=== PATIENT | male | born 1955 | race Caucasian/White ===

== ENCOUNTER 2017-02-06 16:37 | Emergency (ER) | payer SELFPAY ==
[~2017-02-06] VITALS: Ht 175.3 cm; Wt 86.0 kg
[2017-02-06 16:40] VITALS: BP 147/83; PULSE 82; RESP 14; TEMP 98.7; O2SAT 94
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
[2017-02-06] MEDS ORDERED: SODIUM CHLORIDE 0.9% FLUSH 10 ML FLUSH IVF PRN (17:00)
[2017-02-06 17:18] LABS: AUTOMATED NEUTROPHIL # 5.4 TH/MM3 (1.8-7.7); BASOPHIL % 0.3 % (0.0-2.0); EOSINOPHIL # 0.1 TH/MM3 (0-0.4); EOSINOPHIL % 0.9 % (0.0-4.0); HEMATOCRIT 34.3 % (39.0-51.0); HEMO FLAGS DIFF FINAL; LYMPH % 34.4 % (9.0-44.0); LYMPHOCYTE # 3.1 TH/MM3 (1.0-4.8); MEAN CELL VOLUME 86.7 FL (80.0-100.0); MEAN CORPUSCULAR HEMOGLOBIN 30.8 PG (27.0-34.0); MEAN CORPUSCULAR HGB CONC 35.5 % (32.0-36.0); MONO % 5.5 % (0.0-8.0); NEUT % 58.9 % (16.0-70.0); PLATELET COUNT 262 TH/MM3 (150-450); RED BLOOD COUNT 3.96 MIL/MM3 (4.50-5.90); WHITE BLOOD COUNT 9.2 TH/MM3 (4.0-11.0)
[2017-02-06 17:30] LABS: APTT (PATIENT) 26.6 SEC (24.3-30.1); PROTHROMBIN TIME - PATIENT 11.3 SEC (9.8-11.6)
[2017-02-06 17:36] LABS: BICARBONATE 21.4 MEQ/L (21.0-32.0); POTASSIUM 3.7 MEQ/L (3.5-5.1)
--- NOTE | 2017-02-06 17:37 | RADRPT ---
EXAM DATE/TIME: 02/06/2017 17:02 [facility] COMPARISON: No previous studies available for comparison. INDICATIONS : Fall trauma. MEDICAL HISTORY : None. SURGICAL HISTORY : None. ENCOUNTER: Initial ACUITY: 1 day PAIN SCORE: 06/01 LOCATION: Bilateral chest FINDINGS: A single view of the chest demonstrates the lungs to be symmetrically aerated without evidence of mas s, infiltrate or effusion. The cardiomediastinal contours are unremarkable. Osseous structures are grossly acutely intact. CONCLUSION: No evidence of acute cardiopulmonary disease. Zac Ramos MD on February 06, 2017 at 17:35 Board Certified Radiologist. This report was verified electronically.
--- NOTE | 2017-02-06 17:40 | RADRPT ---
EXAM DATE/TIME: 02/06/2017 17:14 [facility] COMPARISON: No previous studies available for comparison. INDICATIONS : Trauma; fall RADIATION DOSE: 69.15 CTDIvol (mGy) MEDICAL HISTORY : None SURGICAL HISTORY : None. ENCOUNTER: Initial ACUITY: 1 day PAIN SCALE: 5/10 LOCATION: Bilateral cranial TECHNIQUE: Multiple contiguous axial images were obtained of the head. Using automated exposure control and adj ustment of the mA and/or kV according to patient size, radiation dose was kept as low as reasonably a chievable to obtain optimal diagnostic quality images. DICOM format image data is available electro nically for review and comparison. FINDINGS: CEREBRUM: The ventricles are normal for age. No evidence of midline shift, mass lesion, hemorrhage or acute in farction. No extra-axial fluid collections are seen. POSTERIOR FOSSA: The cerebellum and brainstem are intact. The 4th ventricle is midline. The cerebellopontine angle i s unremarkable. EXTRACRANIAL: Mucoperiosteal thickening and a fluid level seen in the visualized left maxillary air cell. The visua lized facial bones appear grossly intact. SKULL: The calvaria is intact. No evidence of skull fracture. CONCLUSION: No bleed or other acute intracranial abnormality. Left maxillary sinus disease. Zac Ramos MD on February 06, 2017 at 17:38 Board Certified Radiologist. This report was verified electronically.
--- NOTE | 2017-02-06 17:43 | RADRPT ---
EXAM DATE/TIME: 02/06/2017 17:14 [facility] COMPARISON: No previous studies available for comparison. INDICATIONS : Trauma; fall. RADIATION DOSE: 41.47 CTDIvol (mGy) MEDICAL HISTORY : None SURGICAL HISTORY : None. ENCOUNTER: Initial ACUITY: 1 day PAIN SCALE: 4/10 LOCATION: Bilateral neck TECHNIQUE: Volumetric scanning of the cervical spine was performed. Multiplanar reconstructions in the sagittal, coronal and oblique axial planes were performed. Using automated exposure control and adjustment o f the mA and/or kV according to patient size, radiation dose was kept as low as reasonably achievable to obtain optimal diagnostic quality images. DICOM format image data is available electronically f or review and comparison. FINDINGS: Cervical spine alignment is normal. Vertebral bodies have normal height. No cortical break or trabecu lar disruption. Chronic hypertrophic bone seen of the posterior spinous process of C7, potentially developmental or r elated to old trauma. Mild disc space narrowing with mild uncovertebral and facet osteoarthritis seen at C5/C6. Perivertebral soft tissues are within normal limits. CONCLUSION: No acute fracture or subluxation of the cervical spine. Chronic changes as above. Zac Ramos MD on February 06, 2017 at 17:39 Board Certified Radiologist. This report was verified electronically.
[2017-02-06] MEDS ORDERED: SODIUM CHLOR 0.9% 1000 ML INJ 1,000 ML IV ONE (18:00)
[2017-02-06] MEDS ORDERED: TETANUS/DIPHTHERIA TOXOID ADULT 0.5 ML VIAL IM ONE (19:00)
[2017-02-06 20:59] VITALS: BP 150/80
== END 2017-02-06 21:20 | disposition home or self-care (01) ==
LOC: NEPD 16:37
DX: S01.01XA Laceration without foreign body of scalp, initial encounter (principal); S09.90XA Unspecified injury of head, initial encounter; E87.1 Hypo-osmolality and hyponatremia; F10.10 Alcohol abuse, uncomplicated; Z72.0 Tobacco use; Z23 Encounter for immunization; W18.39XA Other fall on same level, initial encounter
CPT/HCPCS: 12001; 70450; 71010; 72125; 80048; 80307; 85025; 85610; 85730; 90471; 90714; 96360; 96361; 99285; J7030; L0150

== ENCOUNTER 2017-03-27 20:37 | Emergency (ER) | payer SELFPAY ==
[2017-03-27 20:50] VITALS: BP 143/84; PULSE 85; RESP 17; TEMP 99.3; O2SAT 97
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
[2017-03-28 04:59] VITALS: BP 177/77; PULSE 55; RESP 18; O2SAT 98
[2017-03-28 10:38] VITALS: BP 126/83; PULSE 85; RESP 18; TEMP 98.5; O2SAT 99
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
--- NOTE | 2017-03-28 11:53 | PD ---
Physical Exam Date Seen by Provider: Mar 28, 2017 Narrative 62-year-old male presented to emergency department intoxicated and depressed mood. Later while he was drinking he stated he wanted to kill himself. He states that he was sober for approximately 6 years and drank last night. He currently lives in a sober home. Patient was medically cleared to see Dr. Huang. Once patient was sober he admitted to not having any homicidal or suicidal ideations and would like to go back to his sober life. He adamantly wants to stay sober and live his life to the fullest. He appreciates the help that [facility] given him. Data Data Last Documented VS Vital Signs Date Time Temp Pulse Resp B/P (MAP) Pulse Ox O2 Delivery O2 Flow Rate FiO2 03/28/17 10:38 98.5 85 18 126/83 (97) 99 Room Air Orders Orders Psych Screen (03/27/17 21:08) Diet Regular Basic (03/28/17 Breakfast) Diet Regular Basic (03/28/17 Lunch) Ed Discharge Order (03/28/17 12:03) MDM Supervised Visit with LEO: Yes Diagnosis Primary Impression: Alcohol abuse Scripts No Active Prescriptions or Reported Meds Condition: Stable Wendy Hawk Mar 28, 2017 11:53
== END 2017-03-28 12:43 | disposition home or self-care (01) ==
LOC: NEPJ 20:37
DX: F10.10 Alcohol abuse, uncomplicated (principal); R07.9 Chest pain, unspecified; F41.9 Anxiety disorder, unspecified; F39 Unspecified mood [affective] disorder; Z72.0 Tobacco use
CPT/HCPCS: 99284

== ENCOUNTER 2017-11-11 09:42 | Inpatient (IN) | payer SELFPAY ==
[2017-11-11] VITALS (15 sets, daily range): BP systolic 128–175; BP diastolic 70–103; PULSE 53–71; RESP 16–20; TEMP 96.7–98.5; O2SAT 95–100
[~2017-11-11] VITALS: Ht 175.3 cm; Wt 50.0 kg
[2017-11-11] MEDS ORDERED: ONDANSETRON ODT 4 MG TAB PO ONE (10:15)
[2017-11-11] MEDS ORDERED: SODIUM CHLORIDE 0.9% FLUSH 10 ML FLUSH IVF PRN (10:15)
[2017-11-11] MEDS ORDERED: ASPIRIN 81 MG CHEW TAB PO ONE (10:15)
[2017-11-11 10:19] LABS: AUTOMATED NEUTROPHIL # 3.3 TH/MM3 (1.8-7.7); BASOPHIL # 0.1 TH/MM3 (0-0.2); BASOPHIL % 0.8 % (0.0-2.0); EOSINOPHIL # 0.1 TH/MM3 (0-0.4); HEMATOCRIT 35.1 % (39.0-51.0); HEMOGLOBIN 11.5 GM/DL (13.0-17.0); LYMPH % 29.7 % (9.0-44.0); MEAN CORPUSCULAR HEMOGLOBIN 33.6 PG (27.0-34.0); MEAN CORPUSCULAR HGB CONC 32.9 % (32.0-36.0); MEAN PLATELET VOLUME 7.4 FL (7.0-11.0); MONO % 18.9 % (0.0-8.0); MONOCYTE # 1.3 TH/MM3 (0-0.9); NEUT % 48.6 % (16.0-70.0); PLATELET COUNT 469 TH/MM3 (150-450); RED BLOOD COUNT 3.44 MIL/MM3 (4.50-5.90); RED CELL DISTRIBUTION WIDTH 15.1 % (11.6-17.2); WHITE BLOOD COUNT 6.8 TH/MM3 (4.0-11.0)
[2017-11-11 10:23] LABS: CHLORIDE 103 MEQ/L (98-107); SODIUM (NA) 135 MEQ/L (136-145)
[2017-11-11 10:26] LABS: ALBUMIN 3.5 GM/DL (3.4-5.0); BICARBONATE 21.6 MEQ/L (21.0-32.0); CALCIUM 8.3 MG/DL (8.5-10.1)
[2017-11-11 10:27] LABS: BLOOD UREA NITROGEN 4 MG/DL (7-18); GLUCOSE,RANDOM 97 MG/DL (74-106); INTERNATIONAL NORMALIZED RATIO 1.1 RATIO
[2017-11-11 10:30] LABS: ALT (GPT) 60 U/L (12-78); AST (GOT) 42 U/L (15-37); CREATININE 0.79 MG/DL (0.60-1.30); GLOMERULAR FILTRATION RATE 100 ML/MIN (>89)
[2017-11-11 10:31] LABS: TOTAL BILIRUBIN ADULT 0.6 MG/DL (0.2-1.0)
[2017-11-11 10:33] LABS: TOTAL PROTEIN 7.2 GM/DL (6.4-8.2)
[2017-11-11 10:34] LABS: ALKALINE PHOSPHATASE 39 U/L (45-117); TROPONIN I LESS THAN 0.02 NG/ML (0.02-0.05)
--- NOTE | 2017-11-11 10:37 | RADRPT ---
EXAM DATE: 11/11/2017 10:25 AM EDT AGE/SEX: 62 years / Male INDICATIONS: Chest pain. CLINICAL DATA: This is the patient's initial encounter. Patient reports that signs and symptoms have been present for 1 day and indicates a pain score of 6/10. MEDICAL/SURGICAL HISTORY: Cardiovascular disease. None. COMPARISON: [facility] [place], CHEST SINGLE AP, 02/06/2017. . FINDINGS: A single AP view of the chest demonstrates the lungs to be symmetrically aerated without evidence of mass, infiltrate or effusion. Mild left ventricular hypertrophy. Osseous structures are intact. CONCLUSION: Negative for an acute process Mild left ventricular hypertrophy Electronically signed by: Geronimo Stone MD 11/11/2017 10:36 AM EDT
[2017-11-11] MEDS ORDERED: POTASSIUM CHLORIDE 10 MEQ CONTROLLED RELEASE TAB PO ONE (11:00)
--- NOTE | 2017-11-11 11:10 | PD ---
HPI Chief Complaint: Chest Pain Time Seen by Provider: 09:47 Travel History International Travel<30 days: No Contact w/Intl Traveler<30days: No Traveled to known affect area: No History of Present Illness HPI Patient is a 62-year-old male who comes in complaining of chest pain. He says the pain started about 2 hours ago and is in the left side of his chest. He says pain radiates to his left arm. He says that he had similar pain 5 years ago when he had a "minor heart attack." He says the pain started while he was sweeping the floor today. He has some associated shortness of breath and nausea with this. He denies cough or cold symptoms. He has not taken anything for his pain. Nothing seems to improve or worsen his symptoms at this time. Severity is mild to moderate. PFSH Past Medical History Myocardial Infarction: Yes Past Surgical History Abdominal Surgery: Yes (hernia) Social History Alcohol Use: Yes Tobacco Use: No Substance Use: No Allergies-Medications (Allergen,Severity, Reaction): Coded Allergies: No Known Allergies (Unverified Adverse Reaction, Unknown, 11/11/17) Reported Meds & Prescriptions Reported Meds & Active Scripts Active No Active Prescriptions or Reported Medications Review of Systems Except as stated in HPI: all other systems reviewed are Neg General / Constitutional: No: Fever, Chills HENT: No: Headaches, Lightheadedness Cardiovascular: Positive: Chest Pain or Discomfort Respiratory: Positive: Shortness of Breath Gastrointestinal: Positive: Nausea, No: Vomiting, Abdominal Pain Musculoskeletal: No: Myalgias, Edema Skin: No Rash, No Change in Pigmentation Neurologic: No: Weakness, Syncope Physical Exam Narrative GENERAL: Awake and alert, in no acute distress. SKIN: Focused skin assessment warm/dry. HEAD: Atraumatic. Normocephalic. EYES: Pupils equal and round. No scleral icterus. ENT: Mucous membranes pink and moist. NECK: Trachea midline. No JVD. CARDIOVASCULAR: Regular rate and rhythm. No murmur appreciated. RESPIRATORY: No accessory muscle use. Clear to auscultation. Breath sounds equal bilaterally. GASTROINTESTINAL: Abdomen soft, non-tender, nondistended. MUSCULOSKELETAL: No obvious deformities. No clubbing. No cyanosis. No edema. NEUROLOGICAL: Awake and alert. No obvious cranial nerve deficits. Motor grossly within normal limits. Normal speech. PSYCHIATRIC: Appropriate mood and affect; insight and judgment normal. Data Data Last Documented VS Vital Signs Date Time Temp Pulse Resp B/P (MAP) Pulse Ox O2 Delivery O2 Flow Rate FiO2 11/11/17 10:26 71 20 136/84 (101) 97 133/84 (100) 11/11/17 09:50 98.5 Orders Orders Ckmb (Isoenzyme) Profile (11/11/17 10:07) Complete Blood Count With Diff (11/11/17 10:07) Comprehensive Metabolic Panel (11/11/17 10:07) Prothrombin Time / Inr (Pt) (11/11/17 10:07) Act Partial Throm Time (Ptt) (11/11/17 10:07) Troponin I (11/11/17 10:07) Chest, Single Ap (11/11/17 10:07) Ecg Monitoring (11/11/17 10:07) Bilateral Bp Monitoring (11/11/17 10:07) Iv Access Insert/Monitor (11/11/17 10:07) Oximetry (11/11/17 10:07) Oxygen Administration (11/11/17 10:07) Aspirin Chew (Aspirin Chew) (11/11/17 10:15) Sodium Chloride 0.9% Flush (Ns Flush) (11/11/17 10:15) Ondansetron Odt (Zofran Odt) (11/11/17 10:15) CKMB (11/11/17 10:10) CKMB% (11/11/17 10:10) Potassium Chloride (Kcl) (11/11/17 11:00) Morphine Inj (Morphine Inj) (11/11/17 11:15) Admit Order (Ed Use Only) (11/11/17 ) Labs Laboratory Tests Test 11/11/17 10:10 White Blood Count 6.8 TH/MM3 Red Blood Count 3.44 MIL/MM3 Hemoglobin 11.5 GM/DL Hematocrit 35.1 % Mean Corpuscular Volume 102.0 FL Mean Corpuscular Hemoglobin 33.6 PG Mean Corpuscular Hemoglobin Concent 32.9 % Red Cell Distribution Width 15.1 % Platelet Count 469 TH/MM3 Mean Platelet Volume 7.4 FL Neutrophils (%) (Auto) 48.6 % Lymphocytes (%) (Auto) 29.7 % Monocytes (%) (Auto) 18.9 % Eosinophils (%) (Auto) 2.0 % Basophils (%) (Auto) 0.8 % Neutrophils # (Auto) 3.3 TH/MM3 Lymphocytes # (Auto) 2.0 TH/MM3 Monocytes # (Auto) 1.3 TH/MM3 Eosinophils # (Auto) 0.1 TH/MM3 Basophils # (Auto) 0.1 TH/MM3 CBC Comment DIFF FINAL Differential Comment Prothrombin Time 11.0 SEC Prothromb Time International Ratio 1.1 RATIO Activated Partial Thromboplast Time 26.1 SEC Blood Urea Nitrogen 4 MG/DL Creatinine 0.79 MG/DL Random Glucose 97 MG/DL Total Protein 7.2 GM/DL Albumin 3.5 GM/DL Calcium Level 8.3 MG/DL Alkaline Phosphatase 39 U/L Aspartate Amino Transf (AST/SGOT) 42 U/L Alanine Aminotransferase (ALT/SGPT) 60 U/L Total Bilirubin 0.6 MG/DL Sodium Level 135 MEQ/L Potassium Level 3.1 MEQ/L Chloride Level 103 MEQ/L Carbon Dioxide Level 21.6 MEQ/L Anion Gap 10 MEQ/L Estimat Glomerular Filtration Rate 100 ML/MIN Total Creatine Kinase 170 U/L Creatine Kinase MB 4.3 NG/ML Troponin I LESS THAN 0.02 NG/ML MDM Medical Decision Making Medical Screen Exam Complete: Yes Emergency Medical Condition: Yes Medical Record Reviewed: Yes Interpretation(s) ECG shows normal sinus rhythm at a rate of 74, no ST elevation or depression, normal intervals Differential Diagnosis ACS versus NSTEMI versus STEMI Narrative Course Patient is a 62-year-old male who comes in complaining of chest pain. Exam shows no acute abnormalities. I establish, labs sent. Patient connected to the clinical research monitor. Given an aspirin. First troponin is negative. CK-MB is mildly elevated to 4.3. Potassium found to be 3.1, this was replaced. Chest x-ray shows no acute abnormalities. Last 24 hours Impressions Chest X-Ray 11/11/17 1007 Signed Impressions: CONCLUSION: Negative for an acute process Mild left ventricular hypertrophy Patient placed in observation for further management. Diagnosis Primary Impression: Chest pain Qualified Codes: R07.9 - Chest pain, unspecified Admitting Information Admitting Physician Requests: Observation Scripts No Active Prescriptions or Reported Meds Carolina Mariano MD Nov 11, 2017 11:10
[2017-11-11] MEDS ORDERED: SODIUM CHLORIDE 0.9% FLUSH 10 ML FLUSH IV FLUSH PRN (11:15)
[2017-11-11] MEDS ORDERED: MORPHINE SULFATE 4 MG/ML INJ IV PUSH ONE (11:15)
[2017-11-11] MEDS ORDERED: ACETAMINOPHEN 500 MG CPLT PO PRN (11:15)
[2017-11-11] MEDS ORDERED: ONDANSETRON HCL 4 MG/2 ML VIAL IV PUSH PRN (11:15)
[2017-11-11] MEDS: NITROGLYCERIN 0.4 MG SL 25 TABS/BTL SL PRN ×3 (12:51→13:12)
[2017-11-11 14:08] LABS: TROPONIN I LESS THAN 0.02 NG/ML (0.02-0.05)
--- NOTE | 2017-11-11 14:10 | HHI.HP ---
[facility] Service [facility] Primary Care Physician No Primary Care Physician Admission Diagnosis Chest Pain Diagnoses: (1) Chest pain Diagnosis: Principal Chief Complaint: Chest pain Travel History International Travel<30 Days: No Contact w/Intl Traveler <30 Da: No Traveled to Known Affected Are: No History of Present Illness 62-year-old male with known history of previous myocardial infarction who presented to the emergency department for evaluation of chest pain. Patient states that he was in normal state of health until this morning when he woke up in approximately 6:30 AM he developed chest pain located on the left side of his chest with radiation into his left arm and numbness into his left arm. States that he had shortness of breath, lightheadedness, dizziness associated with the discomfort. He describes discomfort as an 8 out of 10 on a pain scale which was persistent. Patient states that as a same type of pain he felt when he had previous heart attack. Patient states that he had previous heart attack 6 years ago, indicated he had a cardiac catheterization that did not require any intervention. He states that he was put on medications for short-term basis and indicated that he was cleared to not take medications anymore. Patient has not had any follow-up or workup since then. Patient indicates that the pain is located of left-sided chest and it does hurt when he pushes on it. He was given morphine in the emergency department with minimal relief, he was just given nitroglycerin with almost complete resolution of the discomfort. Is recommended by ER physician the patient be observed in the chest pain center for further evaluation and management. Review of Systems Constitutional: COMPLAINS OF: Dizziness Cardiovascular: COMPLAINS OF: Chest pain Neurologic: COMPLAINS OF: Paresthesias Except as stated in HPI: all other systems reviewed are Neg Past Family Social History Past Medical History History of myocardial infarction Past Surgical History Cardiac catheterization Reported Medications Reported Meds & Active Scripts Active No Active Prescriptions or Reported Medications Allergies: Coded Allergies: No Known Allergies (Unverified Adverse Reaction, Unknown, 11/11/17) Family History Family history reviewed and significant for father with heart disease. Social History Patient denies any tobacco, alcohol or illicit drug Physical Exam Vital Signs Vital Signs Date Time Temp Pulse Resp B/P (MAP) Pulse Ox O2 Delivery O2 Flow Rate FiO2 11/11/17 13:18 63 16 145/102 (116) 99 11/11/17 13:15 98 21 11/11/17 13:10 61 16 134/88 (103) 96 11/11/17 13:01 62 149/102 (118) 98 11/11/17 12:47 96.8 56 16 148/103 (118) 100 11/11/17 12:21 11/11/17 11:49 61 20 131/87 (102) 98 11/11/17 10:26 71 20 136/84 (101) 97 133/84 (100) 11/11/17 10:09 95 11/11/17 09:50 98.5 65 20 175/89 (117) 99 Physical Exam GENERAL: Well-developed, well-nourished, in no acute distress. alert and orientated HEENT: Head is normocephalic without any lesions or masses noted. Facial features are symmetric. Eyes: Pupils equal round reactive to light. Extraocular muscles are intact. Conjunctivae were clear. Oropharyngeal: Pharynx without any erythema edema. Tongue is midline without deviation. Buccal mucosa is moist without any masses or lesions NECK: Supple without any masses. Trachea midline no deviation. No JVD, no bruits are appreciated CARDIAC: Regular rhythm, regular rate. S1/S2 are heard. No murmurs gallops or rubs. Patient has reproducible chest pain on palpation over the area in which he indicates was his chest discomfort LUNGS: Clear to auscultation bilaterally. No wheeze, rhonchi or rales. No use of accessory muscles on inspiration or expiration. ABDOMEN: Soft, nontender. Nondistended. Bowel sounds heard in all 4 quadrants. No organomegaly or masses. Negative rebound, negative guarding EXTREMITIES: No edema, pulses are equal bilaterally. No cyanosis or clubbing NEUROLOGY: Mood and affect appear appropriate. Cranial nerves II through XII grossly intact. Muscle strength 5/5 in upper and lower extremities bilaterally. Deep tendon reflexes are 2+ in upper and lower extremities bilaterally. Laboratory Laboratory Tests Test 11/11/17 10:10 11/11/17 13:25 White Blood Count 6.8 Red Blood Count 3.44 Hemoglobin 11.5 Hematocrit 35.1 Mean Corpuscular Volume 102.0 Mean Corpuscular Hemoglobin 33.6 Mean Corpuscular Hemoglobin Concent 32.9 Red Cell Distribution Width 15.1 Platelet Count 469 Mean Platelet Volume 7.4 Neutrophils (%) (Auto) 48.6 Lymphocytes (%) (Auto) 29.7 Monocytes (%) (Auto) 18.9 Eosinophils (%) (Auto) 2.0 Basophils (%) (Auto) 0.8 Neutrophils # (Auto) 3.3 Lymphocytes # (Auto) 2.0 Monocytes # (Auto) 1.3 Eosinophils # (Auto) 0.1 Basophils # (Auto) 0.1 CBC Comment DIFF FINAL Differential Comment Prothrombin Time 11.0 Prothromb Time International Ratio 1.1 Activated Partial Thromboplast Time 26.1 Blood Urea Nitrogen 4 Creatinine 0.79 Random Glucose 97 Total Protein 7.2 Albumin 3.5 Calcium Level 8.3 Alkaline Phosphatase 39 Aspartate Amino Transf (AST/SGOT) 42 Alanine Aminotransferase (ALT/SGPT) 60 Total Bilirubin 0.6 Sodium Level 135 Potassium Level 3.1 Chloride Level 103 Carbon Dioxide Level 21.6 Anion Gap 10 Estimat Glomerular Filtration Rate 100 Total Creatine Kinase 170 Creatine Kinase MB 4.3 Troponin I LESS THAN 0.02 Result Diagram: 11/11/17 1010 11/11/17 1010 Imaging Last Impressions Chest X-Ray 11/11/17 1007 Signed Impressions: CONCLUSION: Negative for an acute process Mild left ventricular hypertrophy Caprini VTE Risk Assessment Caprini VTE Risk Assessment: No/Low Risk (score <= 1) Caprini Risk Assessment Model Point Value = 1 Point Value = 2 Point Value = 3 Point Value = 5 Age 41-60 Minor surgery BMI > 25 kg/m2 Swollen legs Varicose veins or History of unexplained or recurrent spontaneous Oral contraceptives or hormone replacement Sepsis (< 1 month) Serious lung disease, including pneumonia (< 1 month) Abnormal pulmonary function Acute myocardial infarction Congestive heart failure (< 1 month) History of inflammatory bowel disease Medical patient at bed rest Age 61-74 Arthroscopic surgery Major open surgery (> 45 min) Laparoscopic surgery (> 45 min) Malignancy Confined to bed (> 72 hours) Immobilizing plaster cast Central venous access Age >= 75 History of VTE Family history of VTE Factor V Leiden Prothrombin [id number] Lupus anticoagulant Anticardiolipin antibodies Elevated serum homocysteine Heparin-induced thrombocytopenia Other congenital or acquired thrombophilia Stroke (< 1 month) Elective arthroplasty Hip, pelvis, or leg fracture Acute spinal cord injury (< 1 month) Prophylaxis Regimen Total Risk Factor Score Risk Level Prophylaxis Regimen 0-1 Low Early ambulation 2 Moderate Order ONE of the following: *Sequential Compression Device (SCD) *Heparin 5000 units SQ BID 3-4 Higher Order ONE of the following medications: *Heparin 5000 units SQ TID *Enoxaparin/Lovenox 40 mg SQ daily (WT < 150 kg, CrCl > 30 mL/min) *Enoxaparin/Lovenox 30 mg SQ daily (WT < 150 kg, CrCl > 10-29 mL/min) *Enoxaparin/Lovenox 30 mg SQ BID (WT < 150 kg, CrCl > 30 mL/min) AND/OR *Sequential Compression Device (SCD) 5 or more Highest Order ONE of the following medications: *Heparin 5000 units SQ TID (Preferred with Epidurals) *Enoxaparin/Lovenox 40 mg SQ daily (WT < 150 kg, CrCl > 30 mL/min) *Enoxaparin/Lovenox 30 mg SQ daily (WT < 150 kg, CrCl > 10-29 mL/min) *Enoxaparin/Lovenox 30 mg SQ BID (WT < 150 kg, CrCl > 30 mL/min) AND *Sequential Compression Device (SCD) Assessment and Plan Assessment and Plan Chest pain, atypical -Patient with risk factors include age, male, history of myocardial infarction, family history of heart disease -Patient has been ruled out for acute coronary event with serial cardiac enzymes that have remained negative -EKG was reviewed by myself and shows sinus bradycardia arrhythmia. Patient does have inverted T waves in the inferior leads this could represent old infarct. -Once patient ruled out for acute coronary event, will anticipate performing myocardial perfusion study to rule out any underlying ischemia -Continue aspirin, nitroglycerin as needed, morphine for pain control -O2 supplementation -Monitor telemetry -Patient discomfort is reproducible and could represent musculoskeletal component, costochondritis. Recommend anti-inflammatory, ice DVT prevention -Sequential compression devices Code Status Full code Problem Qualifiers (1) Chest pain: Qualified Codes: R07.9 - Chest pain, unspecified Felipe Carney Nov 11, 2017 14:10
[2017-11-11] MEDS: MORPHINE SULFATE 2 MG/ML SYRINGE IV PUSH PRN ×2 (18:10→22:39)
[2017-11-11 18:21] LABS: TROPONIN I LESS THAN 0.02 NG/ML (0.02-0.05)
[2017-11-11] MEDS: SODIUM CHLORIDE 0.9% FLUSH 10 ML FLUSH IV FLUSH SCH (20:12)
[2017-11-11] MEDS: ACETAMINOPHEN/HYDROcodone 325 MG/7.5 MG TAB PO PRN (20:13)
[2017-11-12] VITALS (16 sets, daily range): BP systolic 117–151; BP diastolic 66–83; PULSE 49–78; RESP 16–20; TEMP 96.2–98.3; O2SAT 97–100
[2017-11-12] MEDS: MORPHINE SULFATE 2 MG/ML SYRINGE IV PUSH PRN ×3 (03:12→15:34)
[2017-11-12] MEDS: SODIUM CHLORIDE 0.9% FLUSH 10 ML FLUSH IV FLUSH SCH ×2 (08:04→21:32)
[2017-11-12] MEDS: ASPIRIN 325 MG TAB PO SCH (08:05)
[2017-11-12] MEDS ORDERED: REGADENOSON INJ 0.4 MG/5 ML SYR IV ONE (09:28)
--- NOTE | 2017-11-12 09:46 | RADRPT ---
EXAM DATE: 11/12/2017 9:40 AM EDT AGE/SEX: 62 years / Male INDICATIONS:Angina. Myocardial infarction Left sided chest pain. CLINICAL DATA: This is the patient's initial encounter. Patient reports that signs and symptoms have been present for 1 day and indicates a pain score of 2/10. MEDICAL/SURGICAL HISTORY: Hypertension. Inguinal hernia repair. COMPARISON: No prior exams available for comparison. DOSE: 30.1 mCi Tc 99m Myoview at rest 30 mCi [id number] at stress 0.4 mg Lexiscan STRESS SYMPTOMS: Dyspnea and heart racing. EJECTION FRACTION: 52 % TECHNIQUE: The patient underwent pharmacologic stress with infusion of prescribed dose. Continuous ECG tracing was monitored during stress. Gated SPECT imaging was performed after stress and conventi onal SPECT imaging was performed at rest. The examination was performed on a SPECT/CT scanner, both attenuation and non-corrected datasets were reviewed. FINDINGS: Distribution: The maximum perfused segment at stress is in the wall. Perfusion Study: Small area of moderate reversibility involving the anterior wall myocardium Gated Study: There are intact wall motion and wall thickening without hypokinetic or dyskinetic segm ents. The ejection fraction is calculated at 52%. RISK CATEGORY: Intermediate (1-3 % Annual Mortality Rate) CONCLUSION: 1. Small area of moderate reversibility involving the anterior wall suggesting ischemia. 2. Ejection fraction 52%. Electronically signed by: Carmine Ferreira MD 11/12/2017 9:44 AM EDT
[2017-11-12] MEDS ORDERED: PNEUMOCOCCAL POLYVALENT INJ 25 MCG/0.5 ML SYR IM ONE (10:00)
--- NOTE | 2017-11-12 10:41 | HHI.PR ---
Subjective Remarks Patient seen and examined today. Patient states that he still having the discomfort in his chest, it is worse with palpation. Patient denies any nausea , vomiting, shortness of breath, dyspnea. Patient remains afebrile Objective Vitals Vital Signs Date Time Temp Pulse Resp B/P (MAP) Pulse Ox O2 Delivery O2 Flow Rate FiO2 11/12/17 09:18 97 21 11/12/17 07:55 96.3 76 20 151/76 (101) 98 11/12/17 04:00 97.1 53 20 149/83 (105) 97 11/12/17 00:00 97.1 57 20 142/71 (94) 99 11/11/17 20:05 59 11/11/17 20:00 96.7 53 20 128/70 (89) 99 11/11/17 20:00 98 21 11/11/17 18:40 97.7 62 17 100 11/11/17 18:08 143/79 (100) 11/11/17 17:07 68 11/11/17 13:18 63 16 145/102 (116) 99 11/11/17 13:15 98 21 11/11/17 13:10 61 16 134/88 (103) 96 11/11/17 13:01 62 149/102 (118) 98 11/11/17 12:47 96.8 56 16 148/103 (118) 100 11/11/17 12:35 65 11/11/17 12:21 11/11/17 11:49 61 20 131/87 (102) 98 I/O 11/11/17 11/11/17 11/11/17 11/12/17 11/12/17 11/12/17 07:00 15:00 23:00 07:00 15:00 23:00 Intake Total 1200 ml 0 ml Balance 1200 ml 0 ml Intake Oral 1200 ml 0 ml # Voids 3 2 # Bowel Movements 0 1 Result Diagram: 11/11/17 1010 11/11/17 1010 Objective Remarks GENERAL: Well-developed, well-nourished, in no acute distress. alert and orientated HEENT: Head is normocephalic without any lesions or masses noted. Facial features are symmetric. Eyes: Delete extraocular muscles are intact. Conjunctivae were clear. Delayed NECK: Supple without any masses. Trachea midline no deviation. No JVD, CARDIAC: Regular rhythm, regular rate. S1/S2 are heard. No murmurs gallops or rubs. Patient has reproducible chest pain on palpation over the area in which he indicates was his chest discomfort LUNGS: Clear to auscultation bilaterally. No wheeze, rhonchi or rales. No use of accessory muscles on inspiration or expiration. ABDOMEN: Soft, nontender. Nondistended. Bowel sounds heard in all 4 quadrants. No organomegaly or masses. Negative rebound, negative guarding EXTREMITIES: No edema, pulses are equal bilaterally. No cyanosis or clubbing NEUROLOGY: Mood and affect appear appropriate. Cranial nerves II through XII grossly intact. Moving all extremities, speech is clear Urinary Catheter: No Vascular Central Line Catheter: No A/P Assessment and Plan Chest pain, atypical -Patient with risk factors include age, male, history of myocardial infarction, family history of heart disease -Patient has been ruled out for acute coronary event with serial cardiac enzymes that have remained negative -EKG was reviewed by myself and shows sinus bradycardia arrhythmia. Patient does have inverted T waves in the inferior leads this could represent old infarct. -Patient underwent myocardial perfusion study which does show a small moderate sized perfusion defect in the anterior wall with intermediate risk, ejection fraction 52% -Continue aspirin, add Nitropaste, add Lopressor 12.5 mg twice daily, add Lipitor 20 mg daily, add heparin drip -Obtain lipid panel -O2 supplementation -Monitor telemetry -Consulted radio mechanic apprentice, discussed with Dr. Lovelace, he recommended patient be transferred to the [facility] for evaluation and cardiac catheterization DVT prevention -Sequential compression devices Felipe Carney Nov 12, 2017 10:41
[2017-11-12] MEDS ORDERED: ALPRAZolam 0.25 MG TAB PO PRN (11:00)
[2017-11-12] MEDS ORDERED: HEPARIN SODIUM - IV 10,000 UNITS/10 ML VIAL IV ONE (11:00)
[2017-11-12 11:02] LABS: HEMATOCRIT 35.5 % (39.0-51.0); HEMOGLOBIN 11.9 GM/DL (13.0-17.0); MEAN CELL VOLUME 102.1 FL (80.0-100.0); MEAN CORPUSCULAR HEMOGLOBIN 34.1 PG (27.0-34.0); MEAN CORPUSCULAR HGB CONC 33.4 % (32.0-36.0); MEAN PLATELET VOLUME 6.6 FL (7.0-11.0); PLATELET COUNT 514 TH/MM3 (150-450); RED BLOOD COUNT 3.47 MIL/MM3 (4.50-5.90); RED CELL DISTRIBUTION WIDTH 15.4 % (11.6-17.2); WHITE BLOOD COUNT 6.7 TH/MM3 (4.0-11.0)
[2017-11-12 11:13] LABS: BICARBONATE 25.4 MEQ/L (21.0-32.0); CALCIUM 8.3 MG/DL (8.5-10.1)
[2017-11-12 11:14] LABS: INTERNATIONAL NORMALIZED RATIO 1.1 RATIO; PROTHROMBIN TIME - PATIENT 10.8 SEC (9.8-11.6)
[2017-11-12 11:17] LABS: CREATININE 0.79 MG/DL (0.60-1.30)
[2017-11-12] MEDS: HEPARIN-D5W 25,000 U/250 ML 250 ML IV PRN (11:26)
[2017-11-12] MEDS: ACETAMINOPHEN/HYDROcodone 325 MG/7.5 MG TAB PO PRN ×3 (11:42→22:25)
[2017-11-12] MEDS: METOPROLOL TARTRATE 25 MG TAB PO SCH ×2 (11:49→21:29)
[2017-11-12] MEDS: ATORVASTATIN 20 MG TAB PO SCH (11:50)
[2017-11-12] MEDS: NITROGLYCERIN 2% OINT 1 GM PACKET TOPICAL SCH ×3 (11:52→23:41)
[2017-11-12 13:25] LABS: CHOLESTEROL/ HDL RATIO 3.28 RATIO; HDL CHOLESTEROL 47.5 MG/DL (40.0-60.0)
--- NOTE | 2017-11-12 15:07 | EKG ---
Date Performed: 11/11/2017 Time Performed: 09:47:32 PTAGE: 62 years EKG: Sinus rhythm NORMAL ECG NO PREVIOUS TRACING DOCTOR: Kannan Flores Interpretating Date/Time 11/12/2017 15:06:32
--- NOTE | 2017-11-12 15:36 | EKG ---
Date Performed: 11/11/2017 Time Performed: 13:36:10 PTAGE: 62 years EKG: Normal Sinus rhythm Atrial premature complex Since previous tracing, no significant change noted BORDERLINE ECG PREVIOUS TRACING : 11/11/2017 09.47 DOCTOR: Kannan Flores Interpretating Date/Time 11/12/2017 15:34:03
--- NOTE | 2017-11-12 15:36 | EKG ---
Date Performed: 11/11/2017 Time Performed: 17:33:20 PTAGE: 62 years EKG: Normal Sinus rhythm Since previous tracing, no significant change noted BORDERLINE ECG PREVIOUS TRACING : 11/11/2017 13.36 DOCTOR: Kannan Flores Interpretating Date/Time 11/12/2017 15:34:19
--- NOTE | 2017-11-12 16:39 | TR ---
Date Performed: 11/12/2017 Time Performed: 09:05:27 DOCTOR: Waldo Cardenas DRUG LIST: CLINICAL HISTORY: CHEST PAIN REASON FOR TEST: Chest pain REASON FOR ENDING: OBSERVATION: CONCLUSION: Lexiscan stress test was performed under standard four minute protocol. Radionuclide was injected one minute prior to ending the test. No electrocardiographic abormalities were present to suggest ischemia. Nuclear imaging and interpretation are pending. COMMENTS:
[2017-11-12] MEDS ORDERED: HEPARIN SODIUM - IV 10,000 UNITS/10 ML VIAL IV PRN ×2 (17:00)
[2017-11-12] MEDS: MORPHINE SULFATE 4 MG/ML INJ IV PUSH PRN (21:31)
[2017-11-12] MEDS ORDERED: LORATADINE 10 MG TAB PO ONE (21:45)
[2017-11-13] VITALS (27 sets, daily range): BP systolic 111–135; BP diastolic 71–88; PULSE 48–92; RESP 16–20; TEMP 97.7–98.8; O2SAT 93–100
[2017-11-13] MEDS: MORPHINE SULFATE 4 MG/ML INJ IV PUSH PRN ×6 (01:33→23:11)
[2017-11-13] MEDS: ACETAMINOPHEN/HYDROcodone 325 MG/7.5 MG TAB PO PRN ×3 (02:32→11:56)
[2017-11-13] MEDS: NITROGLYCERIN 2% OINT 1 GM PACKET TOPICAL SCH ×4 (05:53→23:13)
[2017-11-13] MEDS: SODIUM CHLORIDE 0.9% FLUSH 10 ML FLUSH IV FLUSH SCH ×2 (09:00→20:07)
[2017-11-13] MEDS: ATORVASTATIN 20 MG TAB PO SCH (09:14)
[2017-11-13] MEDS: ASPIRIN 325 MG TAB PO SCH (09:15)
[2017-11-13] MEDS: LORATADINE 10 MG TAB PO SCH (09:15)
[2017-11-13] MEDS: METOPROLOL TARTRATE 25 MG TAB PO SCH ×2 (09:15→21:36)
[2017-11-13] MEDS: HEPARIN-D5W 25,000 U/250 ML 250 ML IV PRN (09:59)
--- NOTE | 2017-11-13 10:31 | MB ---
cc: Patel Lovelace MD DATE: 11/13/2017 CHIEF COMPLAINT: Chest pain with abnormal nuclear stress test. HISTORY OF PRESENT ILLNESS: The patient is a very pleasant 62-year-old gentleman who says he has a history of a heart attack, but is pretty vague about the details. He tells me he did not have a cardiac catheterization at that time. The patient says that he had been doing fairly well until the last few months, where he began having worsening exercise tolerance with a slow to recover heart rate, and occasional exertional chest discomfort in his left upper chest, radiating to his arm. Yesterday, this became much worse and he said he had severe "gorilla pressure on his chest" that was also sharp. He was admitted to the chest pain center and had a nuclear stress test, which showed a small area of moderate ischemia and thus I was consulted. Currently, the patient is asymptomatic, denying any residual chest discomfort, shortness of breath, lightheadedness or dizziness. PAST MEDICAL HISTORY: Hypertension, hyperlipidemia, possible myocardial infarction. CURRENT MEDICATIONS: 1. Claritin. 2. Nitro paste. 3. Lipitor 20 mg daily. 4. Lopressor 12.5 mg every 12 hours. 5. Aspirin 325 mg daily. ALLERGIES: NO KNOWN DRUG ALLERGIES. PHYSICAL EXAMINATION: VITAL SIGNS: Afebrile, pulse 64, respiratory rate 16, BP 133/88, saturating 98 on room air. GENERAL: Pleasant gentleman in no distress. NECK: No JVD. LUNGS: Clear to auscultation bilaterally. CARDIOVASCULAR: Regular rate and rhythm. No murmurs appreciated. ABDOMEN: Benign. EXTREMITIES: No edema. LABORATORY DATA: White count 6.7, hematocrit 35.5, platelets 514. Sodium 139, potassium 3.7, chloride 100, bicarbonate 25.4, BUN 4, creatinine 0.79, glucose 82. Cardiac enzymes are negative x 3. EKG shows sinus rhythm with nonspecific ST changes. IMPRESSION AND RECOMMENDATIONS: Chest pain with abnormal stress test. The patient has pretty reasonable sounding angina, now with an abnormal nuclear stress test showing anterior ischemia. He will be kept n.p.o. for cardiac catheterization tomorrow. He is already on a heparin drip as well as aspirin, a beta jame and statin. Further recommendations will be based on the above. Thank you give the opportunity to participate in this patient's care. MD EDWARDO Roberts , 08:03 AM , 10:28 AM
[2017-11-13] MEDS ORDERED: SODIUM CHLOR 0.9% 1000 ML INJ 1,000 ML IV SCH (11:05)
--- NOTE | 2017-11-13 11:10 | HHI.PR ---
Addendum to Inpatient Note Addendum Reason: Additional Documentation Additional Information Patient seen and examined. Informed consent for cath/poss PCI in AM. Risks discussed. Kannan Flores MD Nov 13, 2017 11:10
[2017-11-13] MEDS ORDERED: diphenhydrAMINE HCL 50 MG CAP PO ONE (11:15)
--- NOTE | 2017-11-13 15:14 | HHI.PR ---
Subjective Remarks The patient was still complaining of chest pain that comes and goes. He said the morphine worked but the p.o. medication did not. He says he has been having diarrhea for 5 weeks. Discussed with nursing at the bedside. Objective Vitals Vital Signs Date Time Temp Pulse Resp B/P (MAP) Pulse Ox O2 Delivery O2 Flow Rate FiO2 11/13/17 13:09 18 11/13/17 11:30 98.2 59 18 111/71 (84) 96 11/13/17 10:02 18 11/13/17 09:01 97.7 61 18 135/78 (97) 97 11/13/17 06:00 64 11/13/17 05:00 50 11/13/17 04:00 62 11/13/17 03:00 74 11/13/17 03:00 52 16 133/88 (103) 98 11/13/17 02:00 48 11/13/17 01:00 56 11/13/17 00:00 58 11/12/17 23:40 60 16 123/79 (94) 98 11/12/17 23:00 49 11/12/17 22:00 68 11/12/17 21:00 56 11/12/17 20:10 98.0 75 16 121/78 (92) 99 11/12/17 20:00 68 11/12/17 19:00 62 11/12/17 17:45 98.3 61 18 117/77 (90) 100 11/12/17 15:39 18 11/12/17 15:19 96.2 78 20 150/72 (98) 98 I/O 11/12/17 11/12/17 11/12/17 11/13/17 11/13/17 11/13/17 07:00 15:00 23:00 07:00 15:00 23:00 Intake Total 0 ml 60 ml 240 ml 233 ml Output Total 510 ml Balance 0 ml 60 ml -270 ml 233 ml Intake Oral 0 ml 240 ml IV Total 60 ml 233 ml Output Urine Total 510 ml # Voids 2 1 # Bowel Movements 1 Result Diagram: 11/12/17 1057 11/12/17 1057 Imaging Last Impressions Chest X-Ray 11/11/17 1007 Signed Impressions: CONCLUSION: Negative for an acute process Mild left ventricular hypertrophy Myocardial Perfusion Scan Nuc Med 11/11/17 0000 Signed Impressions: CONCLUSION: 1. Small area of moderate reversibility involving the anterior wall suggesting ischemia. 2. Ejection fraction 52%. Objective Remarks GENERAL: Well-developed, well-nourished, in no acute distress. HEENT: Normocephalic, atraumatic. NECK: Supple without any masses. Trachea midline no deviation. No JVD, CARDIAC: Regular rhythm, regular rate. S1/S2 are heard. No murmurs gallops or rubs. LUNGS: Clear to auscultation bilaterally. No wheeze, rhonchi or rales. No use of accessory muscles on inspiration or expiration. ABDOMEN: Soft, nontender. Nondistended. Bowel sounds heard in all 4 quadrants. No organomegaly or masses. Negative rebound, negative guarding EXTREMITIES: No edema, pulses are equal bilaterally. No cyanosis or clubbing NEUROLOGY: Mood and affect appear appropriate. Cranial nerves II through XII grossly intact. Moving all extremities, speech is clear A/P Problem List: (1) Chest pain ICD Code: R07.9 - Chest pain, unspecified Status: Acute Assessment and Plan Chest pain Patient with risk factors include age, male, history of myocardial infarction, family history of heart disease. Patient has been ruled out for acute coronary event with serial cardiac enzymes that have remained negative. EKG shows sinus bradycardia. Patient does have inverted T waves in the inferior leads. Patient underwent myocardial perfusion study which does show a small moderate sized perfusion defect in the anterior wall with intermediate risk, ejection fraction 52%. Cardiology consult appreciated. - Continue aspirin, add Nitropaste, add Lopressor 12.5 mg twice daily, add Lipitor 20 mg daily, add heparin drip. - morphine and oxygen as needed. - Monitor on telemetry. - catheterization in AM per cardiology. Diarrhea Ongoing for five weeks, watery at times. - C diff PCR and stool culture pending. DVT prevention: Heparin Problem Qualifiers (1) Chest pain: Qualified Codes: R07.9 - Chest pain, unspecified Thomas Buckley DO Nov 13, 2017 15:14
[2017-11-13] MEDS ORDERED: POTASSIUM CHLORIDE 20 MEQ CONTROLLED RELEASE TAB PO ONE (15:15)
[2017-11-13] MEDS ORDERED: diphenhydrAMINE HCL 25 MG CAP PO ONE (23:45)
[2017-11-14] VITALS (16 sets, daily range): BP systolic 114–149; BP diastolic 71–92; PULSE 53–89; RESP 16–18; TEMP 98–98.7; O2SAT 96–100
[2017-11-14] MEDS: MORPHINE SULFATE 4 MG/ML INJ IV PUSH PRN ×2 (02:04→11:14)
[2017-11-14] MEDS ORDERED: diphenhydrAMINE HCL 25 MG CAP PO SCH (04:00)
[2017-11-14] MEDS: ASPIRIN EC 81 MG TABEC PO SCH ×3 (06:20→09:04)
[2017-11-14] MEDS: METOPROLOL TARTRATE 25 MG TAB PO SCH (06:21)
[2017-11-14] MEDS: NITROGLYCERIN 2% OINT 1 GM PACKET TOPICAL SCH (06:23)
[2017-11-14] MEDS ORDERED: DIAZEPAM 5 MG TAB PO ONE (06:30)
[2017-11-14] MEDS ORDERED: VERAPAMIL HCL 5 MG/2 ML VIAL ONE (07:17)
[2017-11-14] MEDS ORDERED: MIDAZOLAM HCL 2 MG/2 ML VIAL ONE (07:17)
[2017-11-14] MEDS ORDERED: HEPARIN SODIUM - IV 10,000 UNITS/10 ML VIAL ONE (07:17)
[2017-11-14] MEDS ORDERED: NITROGLYCERIN INJ 5 ML ONE (07:17)
[2017-11-14] MEDS ORDERED: HEPARIN-NS/PF INJ 1,000 ML ONE (07:17)
[2017-11-14] MEDS ORDERED: SODIUM CHLOR 0.9% 1000 ML INJ 1,000 ML IV SCH (08:12)
--- NOTE | 2017-11-14 08:14 | CATHPROC ---
[place] [facility] Report Study Information Study Number Admission Scheduled Start Study Start [id number] Nov 11 2017 11:07AM 11/13/2017 Nov 14 2017 6:54AM [place] Service Cardiac Catheterization Admit Source Facility Department Emergency department [facility] - [facility] Physician and Clinical Staff Initial Kannan Marques Bilingual Nanny Jorge Nunes,BRENDA Bilingual Nanny Yeimi Greer BSN Recorder Amy Cartagena ,RT(R) Scrub Angelito Alonzo RCIS(BS) Procedures Performed Procedure Location (Site) Vessel Name Angiogram LV LV Ventricle Coronary Angiograms LCA Left Coronary Coronary Angiograms RCA Right Coronary L Heart Cath Wire insertion Radial (right) Radial Art. Equipment Time Human Resources Clerk Description Size Mfg Part Number Used/Scraped TRANSDUCER, TRUWAVE [id number] 07:23 GONZALEZ NEFF * Used W/STOCKCOCK *[id number] PIGTAIL ANG. 145 INFINITI [id number] CATHETER *[id number] 07:23 MALLINCKRODT SYRINGE, ANGIOMAT 150ML 150ML *[id number] Used 2SUB [id number] 07:23 Trustribe BLANKET,WARM AIR CCL * Used *[id number] 07:23 Trustribe PACK, CCL CUSTOM * Used *[id number] 07:23 Trustribe SUPPORT, ARTERIAL ADULT 37507 *[id number] Used [id number] 07:23 Hyperpot PACER PEN, SKIN DUAL W/ RULER * Used *[id number] BAND, RADIAL COMPRESSION TR [id number] 08:06 [employer] MEDICAL 24CM Used SHORT 24 *[id number] 07:23 Living Indie WIRE, EXCHANGE 260CM 3MMJ 260CM Used *[id number] 07:23 NAMIC MANIFOLD, 4 PORT * Used *[id number] 07:23 NYCOMED OMNIPAQUE, 350 MG, 100ML 100ML [id number] Used 08:01 NYCOMED OMNIPAQUE, 350 MG, 50ML 50ML [id number] Used 07:23 AFTER-MOUSE JELCO NEEDLE 4056 *[id number] Used CATHETER, FR5 OPTITORQUE [id number] 07:32 TERUMO MEDICAL FR 5 Used RADIAL TIG 4.0 *[id number] SHEATH, FR6 TRANSRADIAL RM*[id number] 07:23 TERUMO MEDICAL FR 6 Used SLENDER 10CM *[id number] History: Current Medications Medication Dosage/Unit Route Frequency Last Date/Time Taken NTG Patch LIPITOR ASA LOPRESSOR History: Allergies Allergy Reaction No Known Allergies History: Risk Factors Family History of Hypertension Dyslipidemia Previous Heart Failure Premature CAD Yes Yes Yes No Prior Valve Prior PCI Prior CABG Surgery No No No Cerebrovascular Peripheral Artery Chronic Lung On Dialysis Diabetes Disease Disease Disease No No No No No History: Stress Tests Stress or Imaging Studies Performed Yes Standard Exercise Stress Test No Stress Echo No Stress Test SPECT Stress Test SPECT Result Stress Test SPECT Ischemia Risk/Extent Yes Positive Intermediate Stress Test CMR No Cardiac CTA Coronary Calcium Score No No History: Other Current Smoker No Labs Hgb (g/dl) Hct (%) WBC (l/cumm) 11.60-17.00 35.00-51.00 4.00-11.00 11.9 35.5 6.7 Glucose (mg/dl) BUN (mg/dl) Creatinine (mg/dl) BUN:Creatinine (1:x) 74.00-106.00 7.00-18.00 0.50-1.30 10.00-20.00 82 4 0.7 5.7 Na (meq/l) K (meq/l) 136.00-145.00 3.50-5.10 139 3.7 INR (PTT:PT) 0.90-1.10 1.1 CPK (u/l) CPK-MB (ng/ML) 26.00-308.00 0.50-3.60 127 3.2 Medication Medication Total Dose (Bolus/Oral) Medication Total Dosage/Unit 1% XYLOCAINE 5 mL FENTANYL 50 mcg RADIAL COCKTAIL 5 mL (Bolus) VERSED 2 mg Medications (Bolus/Oral) Medication Time Given Dosage/Unit Administered By Reason VERSED 11/14/2017 7:36:48 AM 1 mg Des, Jorge 1 mg VERSED given in lab by Jorge Nunes RN in Left Forearm via Peripheral IV. Ordered by Juani Flores. FENTANYL 11/14/2017 7:38:39 AM 50 mcg Des, Jorge 50 mcg FENTANYL given in lab by Jorge Nunes RN in Left Forearm via Peripheral IV. Ordered by Kannan Flores. 1% XYLOCAINE 11/14/2017 7:40:17 AM 5 mL Kannan Flores 5 mL 1% XYLOCAINE given in lab by Kannan Flores in Right Radial via Subcutaneous. Ordered by Kannan Flores. Ntg 200mcg Verapamil 2.5mg Heparin RADIAL COCKTAIL 11/14/2017 7:43:42 AM 5 mL (Bolus) Kannan Flores 2500U 5 mL (Bolus) RADIAL COCKTAIL given in lab by Kannan Flores via Radial. Using [Solution Name]. Ordered by Kannan Flores. Reason: Ntg 200mcg Verapamil 2.5mg Heparin 2500U. VERSED 11/14/2017 7:45:42 AM 1 mg Jorge Nunes 1 mg VERSED given in lab by Jorge Nunes, RN via Peripheral IV. Ordered by Kannan Flores. Medication (Drip) Medication Time Given Dosage/Unit Concentration/Unit Diluent (ml) Solution HEPARIN DRIP 11/14/2017 7:17:10 AM 1100 units/hr 96560 units 250 D5W Patient arrived on 1100 units/hr HEPARIN DRIP via Peripheral IV. Pump/Drip Flow = 11 ml/hr [place] D5W [place] [address] units in 250 ml. IV Solutions 11/14/2017 7:17:24 AM 50 mL (IV) NaCl .9 Patient arrived on IV Solutions given by Jorge Nunes, RN via Peripheral IV. Pump/Drip Flow using NaC l .9. Ordered by Kannan Flores. at K[facility] Initial Case Assessment Cardiovascular HR Rhythm NIBP 58 sr 135/80 Edema Present Skin color Skin None Normal Warm Dry Circulatory - Right Pulses Dorsalis Pedis Femoral Radial 2 2 2 Scale (0,1,2,3,4,d) Circulatory - Left Pulses Dorsalis Pedis Femoral Radial 2 2 Scale (0,1,2,3,4,d) Circulatory - Lower Extremities Color Lower Right Color Lower Left Normal Normal Neurological State Oriented to time-place- Alert Moves all extremities person Respiration - General Respiration Rate SpO2 (%) (B/min) 17 96 Initial Case Assessment Cardiovascular HR Rhythm NIBP 66 sr 133/80 Edema Present Skin color Skin None Normal Warm Dry Circulatory - Right Pulses Dorsalis Pedis Femoral Radial 2 2 2 Scale (0,1,2,3,4,d) Circulatory - Left Pulses Dorsalis Pedis Femoral Radial 2 2 Scale (0,1,2,3,4,d) Circulatory - Lower Extremities Color Lower Right Color Lower Left Normal Normal Neurological State Oriented to time-place- Alert Moves all extremities person Respiration - General Respiration Rate SpO2 (%) (B/min) 22 96 Chronological Log Time Study Chronological Log 7:10:09 Patient arrived via Bed. 7:10:10 Patient Name, D.O.B, / Armband Verified By R.N. 7:16:20 Consent signed by the physician and the patient and verified by the [facility] staff. 7:16:22 Pre-op and post- op instructions given; patient acknowledges understanding of instructions. 7:16:23 Verbal Stimulation=2 Physical Stimulation=2 Airway=2 Respiration=2 TOTAL=8. (0=absent, 1=li mited, 2=present) 7:16:36 Allens test performed on the right radial and ulnar artery. 7:16:38 Patient has been NPO for More than 6Hrs. 7:16:41 Skin Breakdown- none per patient 7:16:51 Patient Warmer Placed on the Table. 7:16:58 A # 20 IV was noted in the Forearm (left). Grade = 0 Patient arrived on 1100 units/hr HEPARIN DRIP via Peripheral IV. Pump/Drip Flow = 11 ml/hr usin g D5W with [place] 7:17[place] [address] units in 250 ml. 7:17:21 History and physical on the chart or being dictated. Patient arrived on IV Solutions given by Jorge Nunes RN via Peripheral IV. Pump/Drip Flow usi ng NaCl .9. Ordered by 7:17:24 Kannan Flores. at [facility] Vitals capture started with the following parameters, Patient=Adult, Interval=5 min, Initial Pre oxuqw=201 mmHg, 7:18:45 Deflation Rate=5 mmHg, Cuff placed on Left Arm 7:18:58 Reference ECG taken Assessment: Initial Case, HR=58 BPM, Rhythm=sr, BQGG=334/80 mmhg, Edema=None, Color=Normal, Skin = Warm, Dry Right Pulses: Karthik Ped=2, Femoral=2, Radial=2 Left Pulses: Karthik Ped=2, Femoral=2 7:19:17 Lower Right Extremities: Color=Normal Lower Left Extremities: Color=Normal Neurological: State=Alert, Ox3, BORRERO Respiration: Resp=17 B/min, SpO2=96 % 7:19:58 HR=58 bpm, KDAN=135/80 mmhg, SpO2=97.0 %, Resp=30 B/min 7:23:29 Bilateral groins prepped with 2% chlorhexidine, and draped after a 3 minute waiting time. 7:24:22 HR=59 bpm, ZVHZ=702/89 mmhg, SpO2=96.0 %, Resp=27 B/min 7:25:26 MD paged 7:29: HR=57 bpm, BNTD=682/79 mmhg, SpO2=98.0 %, Resp=52 B/min 7:29:26 MD arrived. 7:30:16 Pressure channel 1 zeroed. 7:34:23 HR=60 bpm, GQVY=200/80 mmhg, SpO2=97.0 %, Resp=20 B/min Time Out. Correct patient, correct procedure, correct physician, labs, allergies, and equipment verified with track laborer 7:34:49 team present. Fire risk assesment completed (see hard stop sheet for coding). Time Out Concu rred by MD and individual staff in procedure. 7:35:14 Case Start 7:36:48 1 mg VERSED given in lab by Jorge Nunes RN in Left Forearm via Peripheral IV. Ordered by Kannan Perrin. 7:38:39 50 mcg FENTANYL given in lab by Jorge Nunes RN in Left Forearm via Peripheral IV. Ordered by Kannan Flores. 7:39:20 HR=59 bpm, CSWO=565/79 mmhg, SpO2=92 %, Resp=15 B/min 7:40:17 5 mL 1% XYLOCAINE given in lab by Kannan Flores in Right Radial via Subcutaneous. Ordered by Kannan Flores. 7:43:00 Access site was Right Radial Artery. 7:43:09 A wire was inserted via Radial (right). A SHEATH, FR6 TRANSRADIAL SLENDER 10CM FR 6 was advanced into the Radial (right) using the Juliette quesada 7:43:15 technique. 5 mL (Bolus) RADIAL COCKTAIL given in lab by Kannan Flores via Radial. Using [Solution Name]. Or dered by Mark 7:43:42 Kannan. Reason: Ntg 200mcg Verapamil 2.5mg Heparin 2500U. 7:44:23 HR=63 bpm, ZVPV=685/71 mmhg, SpO2=98 %, Resp=20 B/min 7:45:42 1 mg VERSED given in lab by Jorge Nunes, RN via Peripheral IV. Ordered by Kannan Flores. A CATHETER, FR5 OPTITORQUE RADIAL TIG 4.0 FR 5 was advanced over a wire. OMNIPAQUE, 350 MG, 100M L 100ML 7:45:57 was used for injections. 7:49:22 HR=55 bpm, RTLE=127/73 mmhg, SpO2=94 %, Resp=24 B/min 7:49:54 Pressure channel 1 zeroed. Recorded Pressure: Ao, HR=64, Condition=Condition 1 7:50:22 (Aorta) Ao 112/69/88 7:50:44 The LCA was injected and visualized at various angles. OMNIPAQUE, 350 MG, 100ML 100ML used. 7:54:15 The RCA was injected and visualized at various angles. OMNIPAQUE, 350 MG, 100ML 100ML used. 7:54:21 HR=62 bpm, ODCV=789/76 mmhg, SpO2=94 %, Resp=22 B/min After removing the current catheter a PIGTAIL ANG. 145 INFINITI CATHETER FR 6 was advanced over a WIRE, 7:56:44 EXCHANGE 260CM 3MMJ 260CM. Recorded Pressure: LV, HR=66, Condition=Condition 1 7:59:11 (Left Ventricle) LV 122/5/11 7:59:22 HR=70 bpm, MYOO=147/74 mmhg, SpO2=93.0 %, Resp=17 B/min 8:00:35 The LV was injected at 8 cc/sec for a total of 32. OMNIPAQUE, 350 MG, 50ML 50ML used. Recorded Pressure: LV, Ao, HR=67, Condition=Condition 1 8:01:21 (Left Ventricle) LV 111/12/16, (Aorta) Ao 129/69/95 8:02:28 Catheter was removed 8:02:34 Case End (Physician broke scrub) Assessment: Initial Case, HR=66 BPM, Rhythm=sr, CBKH=971/80 mmhg, Edema=None, Color=Normal, Sk in = Warm, Dry Right Pulses: Karthik Ped=2, Femoral=2, Radial=2 Left Pulses: Karthik Ped=2, Femoral=2 8:04:01 Lower Right Extremities: Color=Normal Lower Left Extremities: Color=Normal Neurological: State=Alert, Ox3, BORRERO Respiration: Resp=22 B/min, SpO2=96 % 8:04:23 HR=60 bpm, PCTF=210/80 mmhg, SpO2=96.0 %, Resp=13 B/min Radial Compression Device Used. 12 mLs of air placed in BAND, RADIAL COMPRESSION TR SHORT 24 2 4CM. Affected 8:05:19 hand 96 % O2 saturation. 8:07:04 No case complications noted. 8:07:05 Cine recording checked. 8:07:07 Bedside Report will be given. 8:07:14 A Left Heart Cath was performed. 8:09:26 HR=60 bpm, UVPV=631/88 mmhg, OnZ4=265.0 %, Resp=23 B/min 8:11:58 Patient moved to stretcher End Study - Contrast Media Used In Study Contrast Total Opened (mL) Total Used (mL) Total Wasted (mL) Omnipaque 130 130 0 End Study - Maximum Contrast Load Max Contrast Load (mL) 584.4 End Study - Radiation Exposure Fluoro Time (minutes) 7.3 End Study - Patient Disposition Complications Transferred To Telemetry Bed
[2017-11-14] MEDS ORDERED: BACITRACIN OINT 0.9 GM PKT TOP ONE (08:15)
[2017-11-14] MEDS ORDERED: SODIUM CHLORIDE 0.9% FLUSH 10 ML FLUSH IV FLUSH PRN (08:15)
[2017-11-14] MEDS ORDERED: MISC INFORMATION XX ONE (08:15)
[2017-11-14] MEDS ORDERED: IOHEXOL 350 MG/ML 50 ML BTL (for Cath Lab) OTHER ONE (08:22)
[2017-11-14] MEDS ORDERED: IOHEXOL 350 MG/ML 100 ML BTL (for Cath Lab) OTHER ONE (08:22)
--- NOTE | 2017-11-14 08:28 | MA ---
cc: Kannan Flores MD DATE: 11/14/2017 PROCEDURE PERFORMED: Left heart catheterization, left ventriculography, coronary angiography, right radial arterial approach. DESCRIPTION OF PROCEDURE: The patient was brought to the cardiac catheterization lab in a fasting state. He received a total of 2 mg of IV Versed and 50 mcg of fentanyl for additional sedation. Using 1% lidocaine for local anesthesia, a 6-1/2 [place] sheath was easily inserted in the right femoral artery. Coronary angiography was then performed using a Check catheter. LV pressure and pullback were performed using an angled pigtail catheter. The sheath was then removed with a Terumo band placed. Standard cocktail was administered at the start of the case. There were no complications. FINDINGS: 1. Hemodynamics: Left ventricular pressure is 111/12 with an end diastolic pressure of 16. Aortic pressure is 129/69 with mean of 95. There is no gradient during pullback of the left ventricle to the aorta. 2. Left ventriculography: Prior to contrast administration, there is absence of any calcification noted. The left ventricle shows a low normal ejection fraction of about 50%. There is no wall motion abnormalities. There is no mitral regurgitation. 3. Coronary angiography: The coronaries are all large. The left main coronary artery is 5 mm in size and appears normal, bifurcates into the LAD and circumflex vessels. The LAD has about a 20% proximal stenosis where the large major diagonal branch comes off. This is at a slight bend in the LAD. The caliber of the LAD at that point is about 4.5 mm. The remainder of the LAD appears normal and it is transapical, gives off 1 major diagonal branch. Circumflex artery gives off 1 large marginal branch and 1 large posterolateral branch, which appears normal. The right coronary artery is also large diameter at least 4 mm throughout and appears normal. CONCLUSIONS: 1. Low normal left ventricular function. 2. Normal hemodynamics. 3. Smooth 20% proximal, 4.5 mm diameter LAD, otherwise completely normal coronaries. Chest pain is not explained by coronary etiology. RECOMMENDATIONS: From a cardiology perspective, he can be discharged home in a few hours. Followup possibly with primary care or GI doctor to workup noncardiac sources for chest pain. MD FANNY Peñaloza/TL , 08:11 AM , 08:26 AM
[2017-11-14] MEDS ORDERED: amLODIPine BESYLATE 5 MG TAB PO SCH (09:00)
[2017-11-14] MEDS ORDERED: SODIUM CHLORIDE 0.9% FLUSH 10 ML FLUSH IV FLUSH SCH (09:00)
[2017-11-14] MEDS: LORATADINE 10 MG TAB PO SCH (09:04)
[2017-11-14] MEDS: SODIUM CHLORIDE 0.9% FLUSH 10 ML FLUSH IV FLUSH SCH (09:04)
[2017-11-14] MEDS: ATORVASTATIN 20 MG TAB PO SCH (09:04)
[2017-11-14] MEDS ORDERED: POTASSIUM CHLORIDE 20 MEQ CONTROLLED RELEASE TAB PO ONE ×2 (09:30)
[2017-11-14] MEDS ORDERED: AMLO5 PO (09:32)
[2017-11-14] MEDS ORDERED: PANT40TA3 PO (09:32)
[2017-11-14] MEDS ORDERED: PERC5TAB12 PO (09:32)
[2017-11-14] MEDS ORDERED: ECASA81 PO (09:32)
[2017-11-14] MEDS ORDERED: ATOR20TA15 PO (09:32)
--- NOTE | 2017-11-14 09:33 | HHI.DCPOC ---
Discharge Care Plan Diagnosis: (1) Diarrhea (2) Chest pain Goals to Promote Your Health * To prevent worsening of your condition and complications * To maintain your health at the optimal level Directions to Meet Your Goals Take your medications as prescribed Follow your dietary instruction Follow activity as directed Keep your appointments as scheduled Take your immunizations and boosters as scheduled If your symptoms worsen call your PCP, if no PCP go to Urgent Care Center or Emergency Room Smoking is Dangerous to Your Health. Avoid second hand smoke Call the 24-hour hour crisis hotline for domestic abuse at Thomas Buckley DO Nov 14, 2017 09:33
--- NOTE | 2017-11-14 09:34 | HHI.DS ---
Discharge Summary Admission Date Nov 12, 2017 at 10:35 Discharge Date: Nov 14, 2017 Admitting Diagnosis Chest Pain (1) Chest pain ICD Code: R07.9 - Chest pain, unspecified Diagnosis: Principal Status: Acute (2) Diarrhea ICD Code: R19.7 - Diarrhea, unspecified Diagnosis: Principal Procedures Cardiac catheterization Brief History - From Admission 62-year-old male with known history of previous myocardial infarction who presented to the emergency department for evaluation of chest pain. Patient states that he was in normal state of health until this morning when he woke up in approximately 6:30 AM he developed chest pain located on the left side of his chest with radiation into his left arm and numbness into his left arm. States that he had shortness of breath, lightheadedness, dizziness associated with the discomfort. He describes discomfort as an 8 out of 10 on a pain scale which was persistent. Patient states that as a same type of pain he felt when he had previous heart attack. Patient states that he had previous heart attack 6 years ago, indicated he had a cardiac catheterization that did not require any intervention. He states that he was put on medications for short-term basis and indicated that he was cleared to not take medications anymore. Patient has not had any follow-up or workup since then. Patient indicates that the pain is located of left-sided chest and it does hurt when he pushes on it. He was given morphine in the emergency department with minimal relief, he was just given nitroglycerin with almost complete resolution of the discomfort. Is recommended by ER physician the patient be observed in the chest pain center for further evaluation and management. CBC/BMP: 11/12/17 1057 11/12/17 1057 Significant Findings Laboratory Tests Test 11/11/17 10:10 11/11/17 13:25 11/11/17 17:35 11/12/17 10:57 Red Blood Count 3.44 MIL/MM3 (4.50-5.90) 3.47 MIL/MM3 (4.50-5.90) Hemoglobin 11.5 GM/DL (13.0-17.0) 11.9 GM/DL (13.0-17.0) Hematocrit 35.1 % (39.0-51.0) 35.5 % (39.0-51.0) Mean Corpuscular Volume 102.0 FL (80.0-100.0) 102.1 FL (80.0-100.0) Platelet Count 469 TH/MM3 (150-450) 514 TH/MM3 (150-450) Monocytes (%) (Auto) 18.9 % (0.0-8.0) Monocytes # (Auto) 1.3 TH/MM3 (0-0.9) Blood Urea Nitrogen 4 MG/DL (7-18) 4 MG/DL (7-18) Calcium Level 8.3 MG/DL (8.5-10.1) 8.3 MG/DL (8.5-10.1) Alkaline Phosphatase 39 U/L (45-117) Aspartate Amino Transf (AST/SGOT) 42 U/L (15-37) Sodium Level 135 MEQ/L (136-145) Potassium Level 3.1 MEQ/L (3.5-5.1) Creatine Kinase MB 4.3 NG/ML (0.5-3.6) 3.8 NG/ML (0.5-3.6) Troponin I LESS THAN 0.02 NG/ML LESS THAN 0.02 NG/ML LESS THAN 0.02 NG/ML Mean Corpuscular Hemoglobin 34.1 PG (27.0-34.0) Mean Platelet Volume 6.6 FL (7.0-11.0) Test 11/12/17 18:00 11/13/17 00:40 11/13/17 08:45 11/13/17 15:15 Activated Partial Thromboplast Time 36.2 SEC (24.3-30.1) 42.1 SEC (24.3-30.1) 41.8 SEC (24.3-30.1) Test 11/14/17 04:52 Activated Partial Thromboplast Time 38.5 SEC (24.3-30.1) Imaging Last Impressions Chest X-Ray 11/11/17 1007 Signed Impressions: CONCLUSION: Negative for an acute process Mild left ventricular hypertrophy Myocardial Perfusion Scan Nuc Med 11/11/17 0000 Signed Impressions: CONCLUSION: 1. Small area of moderate reversibility involving the anterior wall suggesting ischemia. 2. Ejection fraction 52%. PE at Discharge GENERAL: Well-developed, well-nourished, in no acute distress. HEENT: Normocephalic, atraumatic. NECK: Supple without any masses. Trachea midline no deviation. No JVD, CARDIAC: Regular rhythm, regular rate. S1/S2 are heard. No murmurs gallops or rubs. LUNGS: Clear to auscultation bilaterally. No wheeze, rhonchi or rales. No use of accessory muscles on inspiration or expiration. ABDOMEN: Soft, nontender. Nondistended. Bowel sounds heard in all 4 quadrants. No organomegaly or masses. Negative rebound, negative guarding EXTREMITIES: No edema, pulses are equal bilaterally. No cyanosis or clubbing NEUROLOGY: Cranial nerves II through XII grossly intact. Moving all extremities , speech is clear Pt update on day of discharge The patient was seen following catheterization. He denied any chest pain or shortness of breath. He was a little tired. Discussed with nursing at the bedside. Hospital Course Chest pain Patient has been ruled out for acute coronary event with serial cardiac enzymes that have remained negative. EKG showed sinus bradycardia with inverted T waves in the inferior leads. Patient underwent myocardial perfusion study which did show a small moderate sized perfusion defect in the anterior wall with intermediate risk, ejection fraction 52%. Cardiology was consulted. The pt was started on aspirin, Nitropaste and Lipitor. He was also started on a heparin drip. He received morphine and oxygen as needed. He was monitored on telemetry. He had a catheterization which did not reveal occlusive disease. The pt was cleared for discharge by cardiology. He will be started on a PPI for non- cardiac chest pain. He will follow up with his PCP. Diarrhea Ongoing for five weeks, watery at times. C diff PCR was negative. He will be referred to gastroenterology upon discharge. Pt Condition on Discharge: Good Discharge Disposition: Discharge Home Discharge Time: <= 30 minutes Discharge Instructions DIET: Follow Instructions for: Heart Healthy Diet Activities you can perform: See Additionl Instruction Other Activity Instructions: Post cath activity instruction Follow up Referrals: Gastroenterology - 1 Week with Kaylene De La Paz MD PCP Follow-up - 1 Week New Medications: Oxycodone-Acetaminophen (Percocet) 5-325 mg Tab 1 TAB PO Q6H PRN for PAIN, #8 TAB 0 Refills Amlodipine (Norvasc) 5 Mg Tab 5 MG PO DAILY for Blood Pressure Management, #[address] (Aspirin DR) 81 Mg Tabdr 81 MG PO DAILY for Heart, #30 TAB Atorvastatin (Atorvastatin) 20 Mg Tab 20 MG PO DAILY for Cholesterol Management, #30 TAB Pantoprazole (Pantoprazole) 40 Mg Tab 40 MG PO DAILY for GERD, #30 TAB Thomas Buckley DO Nov 14, 2017 09:34
[2017-11-14] MEDS ORDERED: PANTOPRAZOLE SOD 40 MG DELAYED RELEASE TAB PO SCH (09:45)
== END 2017-11-14 15:42 | disposition home or self-care (01) | DRG 287 ==
LOC: PHED 09:42 → PHEDA 11:07 → PH3A 12:15 → OBSVTOIN 11-12 10:35 → HCIS 11-12 17:33
PROVIDERS: ADMIT Hospitalist; ATTEND Hospitalist
PROC: 4A023N7 Measurement of Cardiac Sampling and Pressure, Left Heart, Percutaneous Approach (ICD-10-PCS; 2017-11-14)
PROC: B2151ZZ Fluoroscopy of Left Heart using Low Osmolar Contrast (ICD-10-PCS; 2017-11-14)
PROC: B2111ZZ Fluoroscopy of Multiple Coronary Arteries using Low Osmolar Contrast (ICD-10-PCS; principal; 2017-11-14 07:30)
DX: R07.89 Other chest pain (principal); I10 Essential (primary) hypertension; I25.2 Old myocardial infarction; R19.7 Diarrhea, unspecified; Z82.49 Family history of ischemic heart disease and other diseases of the circulatory system; E78.5 Hyperlipidemia, unspecified
CPT/HCPCS: 71045; 78452; 80048; 80053; 80061; 82272; 82550; 82552; 84484; 85025; 85027; 85610; 85730; 87493; 87506; 93005; 93017; 93458; 96374; 96376; 99152; 99153; A9502; C1769; C1893; G0378; J1644; J2250; J2270; J2785; J3010; J7030; Q9967